=== PATIENT | male | born 1980 | race Caucasian/White ===

== ENCOUNTER 2018-08-22 15:17 | Emergency (ER) | payer OTHER ==
--- NOTE | 2018-08-22 16:20 | EDPHY ---
H & P Time Seen by Provider: 08/22/18 16:16 HPI/ROS: CHIEF COMPLAINT: Right shoulder injury HISTORY OF PRESENT ILLNESS: 37-year-old male presents to the emergency department with injury to the right shoulder. [place] jump and fell injuring his right shoulder. He was wearing a helmet. He did not lose consciousness. He denies headache. Denies neck or back pain. Denies pain in his chest or difficulty breathing. Denies paresthesias in upper or lower extremities. Denies abdominal pain. He denies paresthesias in upper or lower extremities. Denies injury to his lower extremities. Denies pain in the right elbow or right wrist. Complains of isolated pain to the right shoulder. REVIEW OF SYSTEMS: Constitutional: No fever, no chills. Eyes: No double or blurry vision. ENT: No sore throat. Respiratory: No cough, no shortness of breath. Cardiac: No chest pain. Gastrointestinal: No abdominal pain, vomiting or diarrhea. Genitourinary: No dysuria. Musculoskeletal: No neck or back pain. Skin: Abrasions. No rashes. Neurological: No headache. Past Medical/Surgical History: Multiple orthopedic injuries Social History: Single Smoking Status: Never smoked Physical Exam: General Appearance: Alert, no distress. Mentating normally and answering questions appropriately. No visible signs of trauma to his head. Eyes: Pupils equal and round. Extraocular motions are all intact. ENT: Mouth: Mucous membranes moist. Respiratory: No wheezing, rhonchi, or rales, lungs are clear to auscultation. Cardiovascular: Regular rate and rhythm. Gastrointestinal: Abdomen is soft and nontender, no masses, no rebound or guarding, bowel sounds normal. Neurological: Alert and oriented x 3, cranial nerves II through XII grossly intact Skin: Superficial abrasions noted to the posterior aspect of the right shoulder overlying the right scapula. Nontender to palpate. He also has superficial abrasions in the right flank area. Warm and dry, no rashes. Musculoskeletal: Nontender to palpate along the cervical, thoracic or lumbar spine. Neck is supple. Extremities: Tender to palpate over the right mid shaft clavicle. Palpable deformity noted. No skin tenting. No evidence of open fracture. No ecchymosis. No overlying abrasions. Limited range of motion of the right shoulder secondary to pain in the clavicle. Full range of motion of the right elbow and right wrist. Psychiatric: Patient is oriented X 3, there is no agitation. Constitutional: Initial Vital Signs Heart Rate 57 L 08/22/18 15:44 Respiratory Rate 16 08/22/18 15:44 Blood Pressure 122/74 H 08/22/18 15:44 O2 Sat (%) 96 08/22/18 15:44 Allergies/Adverse Reactions: No Known Allergies Allergy (Unverified 08/22/18 15:43) Home Medications: Medication Instructions Recorded Valtrex 08/22/18 oxyCODONE/APAP 5/325 [Percocet 1 - 2 tab PO Q4-6PRN PRN #15 tab 08/22/18 5/325] Medical Decision Making - Diagnostics Imaging Results: Imaging Impressions Clavicle X-Ray 08/22/18 16:17 Impression: 1. Displaced fracture midshaft right clavicle with overlapping of the edges and calcific fragments between the fracture ends. X-rays of the right clavicle reveal midshaft fracture with displacement. This is reviewed by myself the PAC system. Radiology interpretation to follow. Imaging: I viewed and interpreted images myself Procedures: Patient was placed in a sling and examined post application in good placement with normal TURBINE TECHNICIAN. ED Course/Re-evaluation: 37-year-old male presents to the emergency department with right shoulder injury. X-rays reveal midshaft clavicular fracture with displacement. He was placed in a sling and examined post application in good placement with normal TURBINE TECHNICIAN. Patient was given orthopedic referral and will follow up in 1 week. Patient just urinated prior to coming back to the room. He states he is unable to urinate again. He does not want to wait given a urine specimen. He states that when he voided he did not notice any blood or specifically gross hematuria. He was given strict precautions to return if he developed flank pain , abdominal pain or gross hematuria. Patient verbalized understanding and agreed. Differential Diagnosis: Including but not limited to fracture, dislocation, contusion, sprain Departure - Departure Disposition: Home, Routine, Self-Care Clinical Impression: Right clavicle fracture Qualifiers: Encounter type: initial encounter Clavicle location: shaft Fracture type: closed Fracture alignment: displaced Qualified Code(s): S42.021A - Displaced fracture of shaft of right clavicle, initial encounter for closed fracture Condition: Good Instructions: Clavicle Fracture (ED) Additional Instructions: Keep sling on until follow-up with orthopedic surgeon this week. Return to the emergency department if he noticed skin tenting, numbness or tingling in her fingers, increasing pain, difficulty breathing, or if you feel worse in any way. Also return to the emergency department if you notices blood in your urine , if you develop abdominal or flank pain, or if you feel worse in any way. Percocet for severe pain as directed. Referrals: Wilber Hernandez MD [Medical Doctor] - 1-2 days without fail (Orthopedic surgeon on-call) Prescriptions: oxyCODONE/APAP 5/325 [Percocet 5/325] 1 - 2 tab PO Q4-6PRN PRN #15 tab PRN Reason: For Moderate To Severe Pain
[2018-08-22] MEDS ORDERED: OXYCODONE/APAP 5/325MG PREPACK#4 BTL TAKEHOME ONE (17:14)
[2018-08-22 17:19] VITALS: BP 122/72
== END 2018-08-22 17:19 | disposition home or self-care (01) ==
DX: S42.021A Displaced fracture of shaft of right clavicle, initial encounter for closed fracture (principal); V18.0XXA Pedal cycle driver injured in noncollision transport accident in nontraffic accident, initial encounter; Y93.55 Activity, bike riding; Y92.482 Bike path as the place of occurrence of the external cause